=== PATIENT | female | born 1965 | race Caucasian/White ===

== ENCOUNTER → 2017-01-15 | Outpatient (REF) ==
[~2017-01-15] MED LIST: ARIMIDEX1 MG PO; ATIVAN 0.50.5 MG/TAB PO; ATOXIMETIN-B1 CAP PO; CALCIUM 600/VIT1 CAP PO; CLARITIN 1010 MG/TAB PO; CLEOCIN HCL300 MG PO; COMPAZINE 110 MG/TAB PO; CYMBALTA 30MG30 MG PO; DECADRON 4MG TAB4 MG PO; ESTROGEN PO; FLEXERIL 1010 MG/TAB PO; IRON324 M1 PO; KLOR-CON 1010 MEQ PO; LEVAQUIN 5500 MG/TA1 PO; LORTAB 5/500 501 TAB PO; MAGNESIUM500 MG PO; NORCO 325 MG-51 TAB PO; PAROXETINE30 MG PO; PAXIL CR25 MG PO; PHARMASSURE ZIN50 MG PO; PROVENTIL4 MG; VESICARE10 MG PO; VITAMIN B1225 MCG PO; VITAMIN D3400 IU PO; [UNRECOGNIZED DRUG - OTHER]
== END ==
LOC: WSOH 08:00
DX: Z02.89 Encounter for other administrative examinations (principal)